=== PATIENT | female | born 1965 | race Native Hawaiian/Other Pacific Islander ===

== ENCOUNTER 2017-10-15 08:11 | Outpatient (CLI) | payer OTHER | END 2017-10-15 22:04 | disposition home or self-care (01) | LOC: MAMMO 08:11 | DX: Z12.31 Encounter for screening mammogram for malignant neoplasm of breast (principal) ==

== ENCOUNTER 2018-10-18 08:20 | Outpatient (CLI) | payer OTHER | END 2018-10-18 19:30 | disposition home or self-care (01) | LOC: MAMMO 08:20 | DX: Z12.31 Encounter for screening mammogram for malignant neoplasm of breast (principal) ==

== ENCOUNTER 2019-11-28 08:50 | Outpatient (CLI) | payer OTHER | END 2019-11-28 19:51 | disposition home or self-care (01) | LOC: MAMMO 08:50 | DX: Z12.31 Encounter for screening mammogram for malignant neoplasm of breast (principal) ==

== ENCOUNTER 2021-01-02 09:06 | Outpatient (CLI) | payer OTHER | END 2021-01-02 22:10 | disposition home or self-care (01) | LOC: MAMMO 09:06 | PROVIDERS: ATTEND Nurse Practitioner Family | DX: Z12.31 Encounter for screening mammogram for malignant neoplasm of breast (principal) ==

== ENCOUNTER 2022-01-22 08:51 | Outpatient (CLI) | payer OTHER | END 2022-01-22 19:17 | disposition home or self-care (01) | LOC: MAMMO 08:51 | PROVIDERS: ATTEND Nurse Practitioner Family | DX: Z12.31 Encounter for screening mammogram for malignant neoplasm of breast (principal) ==

== ENCOUNTER 2022-11-20 13:54 | Outpatient (CLI) | payer OTHER | END 2022-11-20 17:00 | LOC: LAB 13:54 | PROVIDERS: ATTEND Nurse Practitioner Family | DX: R63.5 Abnormal weight gain (principal); R68.89 Other general symptoms and signs; Z79.899 Other long term (current) drug therapy | CPT/HCPCS: 83036; 84439; 84443 ==

== ENCOUNTER 2022-12-24 15:51 | Outpatient (CLI) | payer OTHER | END 2022-12-24 20:12 | disposition home or self-care (01) | LOC: LAB 15:51 | PROVIDERS: ATTEND Nurse Practitioner Family | DX: R94.6 Abnormal results of thyroid function studies (principal) | CPT/HCPCS: 84439; 84443 ==

== ENCOUNTER 2023-01-26 08:53 | Outpatient (CLI) | payer OTHER | END 2023-01-26 21:52 | disposition home or self-care (01) | LOC: MAMMO 08:53 | PROVIDERS: ATTEND Nurse Practitioner Family | DX: Z12.31 Encounter for screening mammogram for malignant neoplasm of breast (principal) ==